=== PATIENT | female | born 1940 | race Caucasian/White ===

== ENCOUNTER 2018-03-16 08:02 | Day surgery (SDC) | payer MEDICARE, OTHER ==
[~2018-03-16] VITALS: Ht 167.6 cm; Wt 81.8 kg
[2018-03-16] MEDS ORDERED: SODIUM CHLORIDE 0.9% 1,000 ML IV ONE (08:31)
[2018-03-16 08:42] VITALS: BP 127/69
[2018-03-16] MEDS ORDERED: CALC-649 PO (08:58)
[2018-03-16] MEDS ORDERED: APIX5TAB PO (08:58)
[2018-03-16] MEDS ORDERED: PRAV40TA2 PO (08:58)
[2018-03-16] MEDS ORDERED: NALT1TAB PO (08:58)
[2018-03-16] MEDS ORDERED: LISI5TAB7 PO (08:58)
[2018-03-16] MEDS ORDERED: POTA20TA6 PO (08:58)
[2018-03-16] MEDS ORDERED: OMEP-110 PO (08:58)
[2018-03-16] MEDS ORDERED: MIDAZOLAM 1 MG/ML, 5ML ONE (09:03)
[2018-03-16] MEDS ORDERED: VERAPAMIL 2.5 MG/ML, 2ML ONE (09:04)
[2018-03-16] MEDS ORDERED: FENTANYL PF 100 MCG/2ML ONE (09:04)
[2018-03-16] MEDS ORDERED: TICAGRELOR 90 MG TABLET ONE (09:04)
[2018-03-16] MEDS ORDERED: LIDOCAINE 2%, 2ML ONE (09:04)
[2018-03-16] MEDS ORDERED: HEPARIN 1,000 UNITS/ML, 10ML ONE (09:04)
[2018-03-16] MEDS ORDERED: BIVALIRUDIN 250 MG ONE (09:04)
[2018-03-16] MEDS ORDERED: ACETAMINOPHEN 325 MG TABLET ONE (11:44)
== END 2018-03-16 14:10 ==
LOC: CACL 08:02
PROVIDERS: ATTEND Internal Medicine Cardiovascular Disease
DX: I25.10 Atherosclerotic heart disease of native coronary artery without angina pectoris (principal); I10 Essential (primary) hypertension; I35.0 Nonrheumatic aortic (valve) stenosis; E78.2 Mixed hyperlipidemia; I48.0 Paroxysmal atrial fibrillation; Z88.8 Allergy status to other drugs, medicaments and biological substances
CPT/HCPCS: 93454; 93567; 99156; C1894; J1644; J2250; J3010; J3490; Q9967; J0583

== ENCOUNTER → 2018-03-29 | Outpatient (CLI) | payer MEDICARE, OTHER ==
[~2018-03-29] MED LIST: APIX5TAB PO; CALC-649 PO; LISI5TAB7 PO; NALT1TAB PO; OMEP-110 PO; OMNIPAQUE 350 MG/ML, 100ML BOTTLE ONE; POTA20TA6 PO; PRAV40TA2 PO
== END ==
LOC: RAD 12:52
PROVIDERS: ATTEND Internal Medicine Cardiovascular Disease
DX: I70.0 Atherosclerosis of aorta (principal); K57.30 Diverticulosis of large intestine without perforation or abscess without bleeding; M85.88 Other specified disorders of bone density and structure, other site; I35.0 Nonrheumatic aortic (valve) stenosis
CPT/HCPCS: 71275; 74174; Q9967

== ENCOUNTER 2018-04-17 07:32 | Inpatient (IN) | payer MEDICARE, OTHER ==
[~2018-04-17] VITALS: Ht 167.6 cm; Wt 83.6 kg
[~2018-04-17 07:32] MED LIST changes: -OMNIPAQUE 350 MG/ML, 100ML BOTTLE ONE
[2018-04-17] MEDS ORDERED: SODIUM CHLORIDE 0.9% 1,000 ML IV ONE (07:38)
[2018-04-17 07:47] VITALS: BP 140/80
[2018-04-17] MEDS ORDERED: ONDANSETRON 2MG/ML, 2ML IVPush PRN (08:00)
[2018-04-17 08:23] LABS: BASOPHILS # (AUTO) 0.03 x10^3/uL (0-0.1); BASOPHILS % (AUTO) 1 % (0-1); EOSINOPHILS # (AUTO) 0.17 x10^3/uL (0-0.4); EOSINOPHILS % (AUTO) 3 % (1-7); LYMPHOCYTES # (AUTO) 2.28 x10^3/uL (1-3.4); LYMPHOCYTES % (AUTO) 36 % (22-44); MD NO; MEAN CORPUSCULAR HEMOGLOBIN 32.7 pg (27.0-34.8); MEAN CORPUSCULAR HGB CONC 33.8 g/dL (32.4-35.8); MEAN CORPUSCULAR VOLUME 96.5 fL (80-100); MEAN PLATELET VOLUME 8.1 fL (7.4-10.4); MONOCYTES % (AUTO) 11 % (2-9); NEUTROPHILS # (AUTO) 3.23 x10^3/uL (1.8-6.8); NEUTROPHILS % (AUTO) 51 % (42-75); PLATELET COUNT 259 x10^3/uL (130-400); RED BLOOD COUNT 4.62 x10^6/uL (3.82-5.3); RED CELL DISTRIBUTION WIDTH 13.4 % (9.6-15.2)
[2018-04-17] MEDS ORDERED: PLEASE ENTER HEIGHT AND WEIGHT MC SCH (08:30)
[2018-04-17 08:34] LABS: ALANINE AMINOTRANSFERASE 31 U/L (12-78); ALBUMIN 3.8 g/dL (3.4-5.0); ANION GAP 9 mmol/L (5-15); CALCIUM 8.6 mg/dL (8.5-10.1); CHLORIDE 106 mmol/L (98-107); CREATININE 0.93 mg/dL (0.55-1.02)
[2018-04-17 08:38] LABS: ALKALINE PHOSPHATASE 99 U/L (45-117); BILIRUBIN,TOTAL 0.6 mg/dL (0.2-1.0); TOTAL PROTEIN 7.3 g/dL (6.4-8.2)
[2018-04-17 08:40] LABS: INTERNATIONAL NORMALIZED RATIO 1.01 (0.93-1.1); PROTHROMBIN TIME 10.4 Seconds (9.6-11.5)
[2018-04-17] MEDS ORDERED: FENTANYL PF 250 MCG/5ML ONE (09:11)
[2018-04-17] MEDS ORDERED: ROCURONIUM 10 MG/ML,10ML ONE (09:54)
[2018-04-17] MEDS ORDERED: SUCCINYLCHOLINE 20 MG/ML, 10ML ONE (09:54)
[2018-04-17] MEDS ORDERED: PROPOFOL 10 MG/ML, 20ML ONE (09:55)
[2018-04-17] MEDS ORDERED: DEXAMETHASONE 4 MG/ML, 1ML ONE (09:56)
[2018-04-17] MEDS ORDERED: PROTAMINE SULFATE 10 MG/ML, 5ML ONE (09:57)
[2018-04-17] MEDS ORDERED: PHENYLEPHRINE 10 MG/ML ONE (10:47)
[2018-04-17] MEDS ORDERED: hydrALAzine 20 MG/ML, 1ML IVPush PRN (11:00)
[2018-04-17] MEDS ORDERED: ACETAMINOPHEN 650 MG SUPP PR PRN (11:00)
[2018-04-17] MEDS ORDERED: LABETALOL 20 MG/4 ML IVPush PRN (11:00)
[2018-04-17] MEDS: SODIUM CHLORIDE 0.9% 1,000 ML IV SCH ×3 (11:07→20:51)
[2018-04-17] MEDS: OMEPRAZOLE 20 MG CAPSULE.DR PO SCH (11:07)
[2018-04-17] MEDS: LISINOPRIL 5 MG TABLET PO SCH (11:08)
[2018-04-17] MEDS ORDERED: APIXABAN 5 MG TABLET PO ONE (13:00)
[2018-04-17 19:35] VITALS: BP 107/50
[2018-04-17] MEDS: [UNRECOGNIZED DRUG - OTHER] PO SCH (20:38)
[2018-04-17] MEDS: BUPROPION HCL PO SCH (20:38)
[2018-04-17] MEDS: NALTREXONE HCL PO SCH (20:38)
[2018-04-17] MEDS: POTASSIUM CHLORIDE 20 MEQ TAB.ER.PRT PO SCH (20:49)
[2018-04-17] MEDS: APIXABAN 5 MG TABLET PO SCH (20:50)
[2018-04-17] MEDS ORDERED: CLOPIDOGREL 300 MG TABLET PO ONE (21:00)
[2018-04-17] MEDS ORDERED: PRAVASTATIN 40 MG TABLET PO SCH (21:00)
[2018-04-17 23:54] VITALS: BP 133/73
[2018-04-18 04:46] VITALS: BP 129/71
[2018-04-18 05:23] LABS: ALBUMIN 3.2 g/dL (3.4-5.0); ANION GAP 7 mmol/L (5-15); CALCIUM 8.9 mg/dL (8.5-10.1); CHLORIDE 110 mmol/L (98-107)
[2018-04-18 05:36] LABS: BASOPHILS # (AUTO) 0.03 x10^3/uL (0-0.1); BASOPHILS % (AUTO) 0 % (0-1); EOSINOPHILS # (AUTO) 0.06 x10^3/uL (0-0.4); EOSINOPHILS % (AUTO) 0 % (1-7); LYMPHOCYTES # (AUTO) 2.84 x10^3/uL (1-3.4); LYMPHOCYTES % (AUTO) 20 % (22-44); MD NO; MEAN CORPUSCULAR HEMOGLOBIN 32.8 pg (27.0-34.8); MEAN CORPUSCULAR HGB CONC 33.9 g/dL (32.4-35.8); MEAN CORPUSCULAR VOLUME 96.8 fL (80-100); MEAN PLATELET VOLUME 8.1 fL (7.4-10.4); MONOCYTES # (AUTO) 1.27 x10^3/uL (0.2-0.8); MONOCYTES % (AUTO) 9 % (2-9); NEUTROPHILS # (AUTO) 10.03 x10^3/uL (1.8-6.8); NEUTROPHILS % (AUTO) 71 % (42-75); PLATELET COUNT 212 x10^3/uL (130-400); RED CELL DISTRIBUTION WIDTH 13.8 % (9.6-15.2)
[2018-04-18 07:00] VITALS: BP 158/80
[2018-04-18] MEDS: OMEPRAZOLE 20 MG CAPSULE.DR PO SCH (08:12)
[2018-04-18] MEDS: LISINOPRIL 5 MG TABLET PO SCH (08:13)
[2018-04-18] MEDS: NALTREXONE HCL PO SCH (08:13)
[2018-04-18] MEDS: BUPROPION HCL PO SCH (08:13)
[2018-04-18] MEDS: APIXABAN 5 MG TABLET PO SCH (08:13)
[2018-04-18] MEDS: POTASSIUM CHLORIDE 20 MEQ TAB.ER.PRT PO SCH (08:13)
[2018-04-18] MEDS: [UNRECOGNIZED DRUG - OTHER] PO SCH (08:13)
[2018-04-18] MEDS: SODIUM CHLORIDE 0.9% 1,000 ML IV SCH (08:19)
[2018-04-18] MEDS ORDERED: CALCIUM/VITAMIN D3 250-125 TABLET PO SCH (09:00)
[2018-04-18] MEDS ORDERED: CLOPIDOGREL 75 MG TABLET PO SCH (09:00)
[2018-04-18] MEDS ORDERED: ASPIRIN 81 MG TABLET EC PO SCH (09:00)
[2018-04-18] MEDS ORDERED: PNEUMOCOCCAL 23 VACCINE IM-VACC ONE (13:00)
[2018-04-18] MEDS ORDERED: ASPI-621 PO (13:31)
== END 2018-04-18 16:12 | disposition home or self-care (01) | DRG 266 ==
LOC: ORIP 07:32 → CCU 10:45 → 5SO 19:02
PROVIDERS: ADMIT Internal Medicine Cardiovascular Disease; ATTEND Internal Medicine Cardiovascular Disease
PROC: B24BZZ4 Ultrasonography of Heart with Aorta, Transesophageal (ICD-10-PCS; 2018-04-17)
PROC: 02RF38Z Replacement of Aortic Valve with Zooplastic Tissue, Percutaneous Approach (ICD-10-PCS; principal; 2018-04-17 09:30)
DX: I35.0 Nonrheumatic aortic (valve) stenosis (principal); Z00.6 Encounter for examination for normal comparison and control in clinical research program; I50.33 Acute on chronic diastolic (congestive) heart failure; D68.59 Other primary thrombophilia; I48.91 Unspecified atrial fibrillation; I11.0 Hypertensive heart disease with heart failure; I48.0 Paroxysmal atrial fibrillation; E78.5 Hyperlipidemia, unspecified; I70.0 Atherosclerosis of aorta; E78.2 Mixed hyperlipidemia
CPT/HCPCS: 0399T; 33361; 36415; 80048; 80053; 82040; 83880; 85025; 85347; 85610; 85730; 86850; 86900; 86923; 87081; 90732; 92986; 93005; 93306; 93312; 93321; 93325; 93355; C1760; C1769; C1894; J1100; J2704; J2720; J3010; J0330; J0360; J2370; J7030; Q9967

== ENCOUNTER → 2018-05-15 | Outpatient (CLI) | payer MEDICARE, OTHER ==
[~2018-05-15] MED LIST changes: +ASPI-621 PO
== END | disposition home or self-care (01) ==
LOC: CVU 13:42
PROVIDERS: ATTEND Internal Medicine Cardiovascular Disease
DX: I11.9 Hypertensive heart disease without heart failure (principal); I35.0 Nonrheumatic aortic (valve) stenosis
CPT/HCPCS: 93306

== ENCOUNTER 2019-04-19 10:41 | Outpatient (CLI) | payer MEDICARE, OTHER ==
[~2019-04-19 10:41] MED LIST changes: -ASPI-621 PO; +ASPI81TA45 PO
== END 2019-04-19 23:59 | disposition home or self-care (01) ==
LOC: CVU 10:41
PROVIDERS: ATTEND Internal Medicine Cardiovascular Disease
DX: I07.1 Rheumatic tricuspid insufficiency (principal); I11.9 Hypertensive heart disease without heart failure
CPT/HCPCS: 0399T; 93306